=== PATIENT | female | born 1975 | race Caucasian/White ===

== ENCOUNTER 2021-10-07 11:45 | Outpatient (CLI) | payer OTHER, SELFPAY ==
[2021-10-07 20:47] LABS: T4 Thyroxine 9.91 ug/dL (5.53-11.0)
== END 2021-10-07 11:46 | disposition home or self-care (01) ==
PROVIDERS: PCP Obstetrics & Gynecology; Visit Provider Obstetrics & Gynecology
DX: E04.9 Nontoxic goiter, unspecified (principal)
CPT/HCPCS: 36415; 84436; 84443